=== PATIENT | male | born 1985 | race Caucasian/White ===

== ENCOUNTER 2018-01-01 16:08 | Emergency (ER) | END 2018-01-01 17:55 | disposition home or self-care (01) ==

== ENCOUNTER 2018-09-25 13:05 | Emergency (ER) | payer OTHER ==
[~2018-09-25] VITALS: Ht 185.4 cm; Wt 180.8 kg
[~2018-09-25 13:05] MED LIST: CEPH-443 PO; PRED20TA PO
[2018-09-25 13:08] VITALS: BP 149/92; PULSE 93; RESP 19; Ht 185.4 cm; Wt 180.8 kg
[2018-09-25] MEDS ORDERED: KETOROLAC 60 MG INJ IM STA (13:36)
[2018-09-25] MEDS ORDERED: IBUP-1542 PO (14:55)
[2018-09-25] MEDS ORDERED: TRAM50TA2 PO (14:56)
--- NOTE | 2018-09-25 14:59 | ERD ---
ER Documentation Chief Complaint Chief Complaint RT RIB PAIN X 1 DAY. DENIES ANY INJURY HPI 33-year-old male presents with pain in his right chest wall starting today. Denies any history of trauma, inciting events, coughing. Denies abdominal pain, vomiting. Pain worsened by lying on his right side and stretching his right upper extremity. Patient states that he is otherwise healthy. ROS All systems reviewed and are negative except as per history of present illness. Medications Home Meds Active Scripts Tramadol HCl (Tramadol HCl) 50 Mg Tablet, 50 MG PO Q4 PRN for PAIN, #10 TAB Prov:JAVIER DODSON MD 09/25/18 Ibuprofen* (Motrin*) 600 Mg Tab, 600 MG PO Q6, #15 TAB Prov:JAVIER DODSON MD 09/25/18 Cephalexin* (Keflex*) 500 Mg Capsule, 500 MG PO QID for 7 Days, CAP Prov:LUPE GARCIA MD 01/01/18 Prednisone* (Prednisone*) 20 Mg Tab, 60 MG PO DAILY for 4 Days, TAB Prov:LUPE GARCIA MD 01/01/18 Cephalexin* (Keflex*) 500 Mg Capsule, 500 MG PO QID for 3 Days, CAP Prov:MARITZA MICHAEL MD 05/15/15 Allergies Allergies: Coded Allergies: No Known Allergy (Unverified , 09/25/18) PMhx/Soc Medical and Surgical Hx: pt denies Surgical Hx Hx Cardiac Disorders: Yes (htn on losartan) Hx Alcohol Use: No Hx Substance Use: No Hx Tobacco Use: No Smoking Status: Never smoker FmHx Family History: No diabetes, No coronary disease, No other Physical Exam Vitals Vital Signs Date Temp Pulse Resp B/P (MAP) Pulse Ox O2 O2 Flow FiO2 Time Delivery Rate 09/25/18 97.3 93 19 149/92 96 13:08 (111) Physical Exam Const: No acute distress Head: Atraumatic Eyes: Normal Conjunctiva ENT: Normal External Ears, Nose and Mouth. Neck: Full range of motion. No meningismus. Resp: Clear to auscultation bilaterally. Patient points to the right T8 area as the area of pain. No deformities, skin changes. Cardio: Regular rate and rhythm, no murmurs Abd: Soft, non tender, non distended. Normal bowel sounds .o Ling sign or abdominal tenderness appreciated. Skin: No petechiae or rashes Back: No midline or flank tenderness Ext: No cyanosis, or edema Neur: Awake and alert Psych: Normal Mood and Affect Results 24 hrs Current Medications Medications Dose Sig/Shantelle Start Time Status Last (Trade) Ordered Route PRN Stop Time Admin Dose Reason Admin Ketorolac 60 mg ONCE STAT 09/25/18 DC 09/25/18 Tromethamine IM 13:36 13:44 (Toradol) 09/25/18 13:38 Procedures/MDM Chest X-ray 1V Interpreted by me: Soft Tissue: No acute abnormalities Bones: No acute abnormalities Mediastinum/Cardiac Silhouette/Lungs: No acute abnormalities. Impression- normal 1 view chest x-ray EKG: Rate/Rhythm: Normal Sinus Rhythm. Rate equals 79 QRS, ST, T-waves: No changes consistent w/ acute ischemia Impression: No evidence of ischemia or arrhythmia She presents with right-sided chest wall pain. He has no signs currently abdominal pain to suggest hepatobiliary disease or abdominal etiology. He has no signs of hypoxemia, respiratory distress. There is no leg swelling, calf swelling patient has PERC negative and Wells negative. Doubt PE. There is no signs to suggest cardiac chest pain, aortic disease, additional acute concerning signs or symptoms. He may have musculoskeletal chest wall strain. Will treat with ibuprofen, short course of tramadol, primary care follow-up and return precautions. He was given Toradol 60 mg IM here in the ED. The patient was sta ble with no new complaints during the ER course. Clinically, there is no current evidence to suggest meningitis, sepsis, acute abdomen, pneumonia, stroke, acute coronary syndrome, pulmonary embolism, aortic dissection or any other emergent condition appearing to require further evaluation or hospitalization. Patient counseled regarding my diagnostic impression and care plan. Prior to discharge all questions answered. Pt agrees with treatment plan and understands strict return precautions. Pt is instructed to follow up with primary care provider within 24-48 hours. Precautionary instructions provided including instructions to return to the ER if not improving or for any worsening or changing symptoms or concerns. Disclaimer: Inadvertent spelling and grammatical errors are likely due to EHR/dictation software use and do not reflect on the overall quality of patient care. Also, please note that the electronic time recorded on this note does not necessarily reflect the actual time of the patient encounter. Departure Diagnosis: Primary Impression: Rib pain Condition: Stable Patient Instructions: Chest Pain, Uncertain Cause, Thoracic Strain Referrals: NO PRIMARY,CARE PHYSICIAN (PCP) Additional Instructions: X-ray and EKG showed no acute abnormalities. May be muscular skeletal chest wall strain. Recheck for new worsening symptoms-fevers, shortness of breath, abdominal pain, vomiting, new worsening symptoms. JAVIER DODSON MD Sep 25, 2018 14:59
== END 2018-09-25 15:26 | disposition home or self-care (01) ==
LOC: FTE 13:05
DX: R07.81 Pleurodynia (principal); I10 Essential (primary) hypertension
CPT/HCPCS: 71045; 93005; 96372; J1885; Z7502